=== PATIENT | male | born 1980 | race African-American/Black ===

== ENCOUNTER 2016-11-09 18:07 | Emergency (ER) | payer SELFPAY ==
[~2016-11-09] VITALS: Ht 182.9 cm; Wt 65.8 kg
[2016-11-09] MEDS ORDERED: FAMOTIDINE (20 MG) 20 MG TABLET ONE (18:49)
[2016-11-09] MEDS ORDERED: MAG HYDROX/AL HYDROX/SIMETH 30 ML UDC ONE (18:50)
[2016-11-09] MEDS ORDERED: ONDANSETRON 4 MG TAB.RAPDIS ONE (18:50)
[2016-11-09] MEDS ORDERED: IV SET PRIMARY 1 EA INFUS.SET MC ONE (18:58)
[2016-11-09] MEDS ORDERED: ONDANSETRON HCL/PF 4 MG/2 ML VIAL ONE (18:58)
[2016-11-09] MEDS ORDERED: IV NS 0.9% 1,000 ML ONE (18:58)
[2016-11-09] MEDS ORDERED: MAG HYDROX/AL HYDROX/SIMETH 30 ML UDC PO ONE (19:00)
[2016-11-09] MEDS ORDERED: ONDANSETRON HCL/PF - ER 4 MG/2 ML VIAL IV ONE (19:00)
[2016-11-09] MEDS ORDERED: IV NS 0.9% 1,000 ML BAG IV ONE (19:00)
[2016-11-09] MEDS ORDERED: ONDANSETRON 4 MG TAB.RAPDIS SL ONE (19:00)
[2016-11-09] MEDS ORDERED: FAMOTIDINE (20 MG) 20 MG TABLET PO ONE (19:00)
[2016-11-09 19:02] LABS: BASOPHILS # (AUTO) 0.1 /CMM (0.0-0.2); BASOPHILS % (AUTO) 0.9 % (0.0-2.0); DIFF TOTAL % 100 %; EOSINOPHILS % (AUTO) 0.3 % (0.0-6.0); HEMATOCRIT 41 % (39-51); HEMOGLOBIN 13.2 g/dL (13.5-17.5); LYMPHOCYTES # (AUTO) 1.7 /CMM (0.8-4.8); LYMPHOCYTES % (AUTO) 22.3 % (20.0-44.0); MEAN CORPUSCULAR HEMOGLOBIN 24 PG (26.0-33.0); MEAN CORPUSCULAR HGB CONC 32 g/dl (31.0-36.0); MEAN CORPUSCULAR VOLUME 76 fL (80-96); MONOCYTES # (AUTO) 0.5 /CMM (0.1-1.30); MONOCYTES % (AUTO) 6.2 % (2.0-12.0); NEUTROPHILS # (AUTO) 5.2 /CMM (1.8-8.9); NEUTROPHILS % (AUTO) 70.3 % (43.0-81.0); PLATELET COUNT (AUTO) 218 /CMM (150-450); RED BLOOD CELL COUNT(AUTO) 5.46 MIL/uL (4.5-6.0); WHITE BLOOD COUNT (AUTO) 7.5 K/uL (4.3-11.0)
[2016-11-09 19:11] LABS: CALCIUM, SERUM 8.7 mg/dL (8.5-10.1); CREATININE 1.1 mg/dL (0.6-1.3); POTASSIUM 4.1 mmol/L (3.5-5.1)
[2016-11-09 19:17] LABS: ALBUMIN 4.2 g/dL (3.4-5.0); BILIRUBIN,TOTAL 0.4 mg/dL (0.2-1.0); TOTAL PROTEIN, SERUM 7.3 g/dL (6.4-8.2)
[2016-11-09 21:07] VITALS: BP 125/76
== END 2016-11-09 21:08 | disposition home or self-care (01) ==
LOC: ER 18:08
DX: K29.20 Alcoholic gastritis without bleeding (principal); F10.10 Alcohol abuse, uncomplicated; F17.210 Nicotine dependence, cigarettes, uncomplicated
CPT/HCPCS: 36415; 80053; 83690; 85025; 96374; 99284; A4606; J2405; J7030; Q0162; Z7610

== ENCOUNTER 2018-12-28 22:15 | Emergency (ER) | payer MEDICAID ==
[~2018-12-28] VITALS: Ht 182.9 cm; Wt 71.7 kg
--- NOTE | 2018-12-28 23:06 | NUR ---
PT BIBS. C/O "HAVE A TOOTHACHE AND A HEADACHE" -SOB. -DIZZINESS -N/V AOX4. AMBULATORY W.STEADY GAIT.
[2018-12-28] MEDS ORDERED: AMOXICILLIN TRIHYDRATE 250 MG CAPSULE ONE (23:25)
[2018-12-28] MEDS ORDERED: HYDROMORPHONE 1 MG/1 ML DISP.SYRIN ONE (23:25)
[2018-12-28] MEDS ORDERED: IBUPROFEN 600 MG TABLET PO ONE (23:26)
[2018-12-28] MEDS: HYDROMORPHONE INJ 0.5 MG/0.5 ML SYRINGE IM ONE (23:45)
[2018-12-28] MEDS: IBUPROFEN 600 MG TABLET PO ONE (23:46)
[2018-12-28] MEDS: AMOXICILLIN TRIHYDRATE 250 MG CAPSULE PO ONE (23:46)
[2018-12-28 23:57] VITALS: BP 130/91
== END 2018-12-28 23:57 | disposition home or self-care (01) ==
LOC: ER 22:24
DX: K08.89 Other specified disorders of teeth and supporting structures (principal); J45.909 Unspecified asthma, uncomplicated; F10.10 Alcohol abuse, uncomplicated; F17.200 Nicotine dependence, unspecified, uncomplicated; Y90.9 Presence of alcohol in blood, level not specified
CPT/HCPCS: 96372; 99283; A4606; J1170

== ENCOUNTER 2019-03-18 17:53 | Emergency (ER) | payer MEDICAID ==
[~2019-03-18] VITALS: Ht 182.9 cm; Wt 72.6 kg
[2019-03-18 17:56] VITALS: BP 129/97
[2019-03-18] MEDS ORDERED: IBUPROFEN 600 MG TABLET PO ONE ×2 (18:18→18:30)
--- NOTE | 2019-03-18 18:21 | NUR ---
Patient discharged to home in stable condition. Written and verbal after care instructions given. Patient verbalizes understanding of instruction.
== END 2019-03-18 18:23 | disposition home or self-care (01) ==
LOC: ER 17:57
DX: M54.5 Low back pain (principal); J45.909 Unspecified asthma, uncomplicated; F17.200 Nicotine dependence, unspecified, uncomplicated